=== PATIENT | female | born 2005 | race Two or more races ===

== ENCOUNTER → 2025-04-22 | Emergency (ER) | payer OTHER ==
[~2025-04-22] VITALS: Ht 152.4 cm; Wt 60.3 kg
[~2025-04-22] MED LIST: 8HR ARTHRITIS650 M1 PO; ACETAMINOPHEN 500 MG GEL..CAP PO ONE; DEXAMETHASONE SODIUM PHOSPHATE 4 MG/ML VIAL IV ONE; DEXAMETHASONE SODIUM PHOSPHATE 4 MG/ML VIAL ONE; KETO10TA2 PO; KETOROLAC TROMETHAMINE 30 MG VIAL IU ONE; KETOROLAC TROMETHAMINE 30 MG VIAL ONE; ORPHENADRINE CITRATE 30 MG/ML AMPUL IM ONE; ORPHENADRINE CITRATE 30 MG/ML AMPUL ONE; PEPCID AC20 MG PO
[2025-04-22 15:49] VITALS: BP 121/84; O2SAT 97
[2025-04-22 16:59] LABS: BASO % 0.3 % (0.1-1.2); EOS # 0.06 (0.04-0.54); EOS % 0.6 % (0.7-7.0); LYMPH # 1.81 (1.18-3.74); LYMPH % 19.4 % (19.3-53.1); MEAN PLATELET VOLUME 9.90 fl (9.4-12.4); MONO # 0.41 (0.24-0.82); MONO % 4.4 % (4.7-12.5); NEUT # 7.02 (1.56-6.13); NEUT % 75.1 % (34.0-71.1); RED CELL DISTRIBUTION WIDTH 13.2 % (11.6-14.4)
[2025-04-22 18:06] LABS: ALT/SGPT 29 U/L (12-78); AST/SGOT 18 U/L (15-37); BILIRUBIN TOTAL 0.37 mg/dL (0.3-1.2); BUN CREA RATIO 10 (7.0-25.0); CREATININE SERUM 1.10 mg/dL (0.55-1.02); GFR 62.70; GLOBULINA 4.4 G/DL (2.4-3.5); GLUCOSE FASTING 98 mg/dL (65-100); OSMOLALITY SERUM 279 MOSM/KG (275-295)
[2025-04-22 18:15] LABS: HCG QUANTITATIVE < 1 mUI/mL (1-3)
[2025-04-22 18:34] LABS: URINE APPEARANCE Clear; URINE BILIRRUBIN Negative (NEGATIVE); URINE BLOOD Small; URINE COLOR Yellow; URINE GLUCOSE Negative (NEGATIVE); URINE KETONE 15 (NEGATIVE); URINE LEUKOCYTE Negative; URINE NITRATE Negative; URINE PROTEIN Negative (NEGATIVE); URINE UROBILINOGEN 0.2 E.U./dl
[2025-04-22 18:38] LABS: URINE BACTERIA 785.8 uL (0.0-1933); URINE EPITHELIAL CELLS 13.6 uL (0.0-38.8); URINE RBC 35.4 uL (0.0-20.8); URINE WBC 20.6 uL (0.0-23.2)
[2025-04-22 18:46] LABS: URINE CAST 0.28 uL (0.0-1.40)
== END | disposition home or self-care (01) ==
LOC: ER 13:50 → EDBD 15:26 → ER 15:26
PROVIDERS: General Practice
DX: R10.20 Pelvic and perineal pain unspecified side (principal); R11.10 Vomiting, unspecified; R11.2 Nausea with vomiting, unspecified